=== PATIENT | male | born 2000 | race Caucasian/White ===

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

== ENCOUNTER 2019-10-17 00:35 | Emergency (ER) | payer MEDICAID ==
[~2019-10-17] VITALS: Ht 180.3 cm; Wt 65.8 kg
--- NOTE | 2019-10-17 00:35 | NUR ---
ROSITA CHENG, PREBOOK. TAKEN TO CHAIR A
[2019-10-17 00:41] VITALS: BP 134/94
--- NOTE | 2019-10-17 00:48 | NUR ---
Dr. Perla examining patient.
[2019-10-17] MEDS ORDERED: KETOROLAC 60 MG/2 ML VIAL IM ONE ×2 (00:50)
--- NOTE | 2019-10-17 00:57 | NUR ---
PATIENT BIB [employer]. PATIENT EXAMINED BY . PATIENT MEDICALLY CLEARED AND RELEASED IN CUSTODY IN STABLE CONDITION. ORIGINAL PRE-BOOK FORM GIVEN TO OFFICER HONG, #[id number]
== END 2019-10-17 00:57 ==
LOC: MED 00:35
DX: M25.531 Pain in right wrist (principal); M25.532 Pain in left wrist; F12.90 Cannabis use, unspecified, uncomplicated; Z02.89 Encounter for other administrative examinations
CPT/HCPCS: 96372; 99283; J1885

== ENCOUNTER 2019-10-18 03:02 | Emergency (ER) | payer MEDICAID, SELFPAY ==
[~2019-10-18] VITALS: Ht 180.3 cm; Wt 55.8 kg
[2019-10-18 03:18] VITALS: BP 123/80
--- NOTE | 2019-10-18 03:45 | NUR ---
RITIKA BIRMINGHAM IN TENT TO REDD PT
--- NOTE | 2019-10-18 03:50 | NUR ---
RITIKA BIRMINGHAM ASSESSED AND EVALUATED PT.
--- NOTE | 2019-10-18 04:00 | NUR ---
COLLECTED COVID SWAB AND SENT TO LAB.
[2019-10-18 04:10] VITALS: BP 123/80
--- NOTE | 2019-10-18 04:10 | NUR ---
Patient discharged with v/s stable. Written and verbal after care instructions given and explained. Patient alert, oriented and verbalized understanding of instructions. Ambulatory with steady gait. All questions addressed prior to discharge. ID band removed. Patient advised to follow up with PMD. Rx of PREDNISONE, MOTRIN, ZOFRAN, NORCO given. Patient educated on indication of medication including possible reaction and side effects. Opportunity to ask questions provided and answered.
== END 2019-10-18 04:10 | disposition home or self-care (01) ==
LOC: MED 03:02
DX: J02.9 Acute pharyngitis, unspecified (principal); R50.9 Fever, unspecified; R11.2 Nausea with vomiting, unspecified; M79.10 Myalgia, unspecified site; Z20.828 Contact with and (suspected) exposure to other viral communicable diseases
CPT/HCPCS: 99283; U0003

== ENCOUNTER 2019-10-19 04:14 | Emergency (ER) | payer MEDICAID ==
[~2019-10-19] VITALS: Ht 167.6 cm; Wt 65.8 kg
[2019-10-19 04:29] VITALS: BP 119/84
[2019-10-19] MEDS ORDERED: IBUPROFEN 600 MG TAB PO ONE (04:40)
[2019-10-19] MEDS ORDERED: ONDANSETRON 4 MG ODT PO ONE (04:40)
--- NOTE | 2019-10-19 04:40 | NUR ---
TRIAGED AND WAITING IN LAB.
--- NOTE | 2019-10-19 04:55 | NUR ---
19M PRESENTS TO ED WITH C/O SOB, SORE THROAT, VOMITING, HEADACHE X 1 WEEK. PT STATES THEY WOKE FEELING SHORT OF BREATH TONIGHT. PT DENIES BLURRY VISION. REPORTS A SUBJECTIVE COUGH. CBL SOUNDS. BOWEL SOUNDS NORMOACTIVE. ABDOMEN SOFT AND NONTENDER. HEART SOUNDS EQUAL AND REGULAR. ERMD MADE AWARE OF PT STATUS. PMHX: ANXIETY DEPRESSION NKA
--- NOTE | 2019-10-19 05:15 | NUR ---
Patient discharged with v/s stable. Written and verbal after care instructions given and explained. Patient alert, oriented and verbalized understanding of instructions. Ambulatory with steady gait. All questions addressed prior to discharge. ID band removed. Patient advised to follow up with PMD. Rx of NAPROXEN AND PREDNISONE given. Patient educated on indication of medication including possible reaction and side effects. Opportunity to ask questions provided and answered.
== END 2019-10-19 05:15 | disposition home or self-care (01) ==
LOC: MED 04:14
DX: J02.8 Acute pharyngitis due to other specified organisms (principal); Z20.828 Contact with and (suspected) exposure to other viral communicable diseases; B96.89 Other specified bacterial agents as the cause of diseases classified elsewhere; R11.2 Nausea with vomiting, unspecified; R51 Headache; F41.9 Anxiety disorder, unspecified
CPT/HCPCS: 71045; 99283; Q0162; 96361; 96365; 96375; 99285

== ENCOUNTER 2020-01-13 17:45 | Emergency (ER) | payer SELFPAY ==
[~2020-01-13] VITALS: Ht 180.3 cm; Wt 59.0 kg
[2020-01-13 17:58] VITALS: BP 112/75
--- NOTE | 2020-01-13 18:08 | NUR ---
RITIKA ORNELAS AT BEDSIDE EVALUATING
--- NOTE | 2020-01-13 18:10 | NUR ---
C/O INTERMITENT RLQ ABDOMINAL PAIN, NAUSEA, DIARRHEA X 2 WEEKS. ABD IS SOFT, FLAT, ACTIVE BS, AND TENDERNESS TO TOUCH ON LLQ. VSS. A&O X4. STEADY GAIT. +NAUSEA, +DIARRHEA, +CHANGE OF APPETTIE. LAST BM WAS 1500 TODAY. DENIES ANY BLOOD IN URINE OR STOOL. 9/10 PAIN AND DESCRIBES IT ACHING. MED HX: DENIES NKDA.
--- NOTE | 2020-01-13 18:14 | NUR ---
PT TRANSFER TO CT VIA W/C.
--- NOTE | 2020-01-13 18:25 | NUR ---
PT RETURNED BACK FROM CT.
--- NOTE | 2020-01-13 18:25 | NUR ---
LAB AT BEDSIDE.
[2020-01-13 18:38] LABS: BASOPHILS # (AUTO) 0.1 K/uL (0.00-0.22); BASOPHILS % (AUTO) 1.1 % (0.0-2.0); EOSINOPHILS # (AUTO) 0.1 K/uL (0-0.4); EOSINOPHILS % (AUTO) 1.1 % (0.0-4.0); HEMOGLOBIN 16.9 g/dL (12.0-18.0); LYMPHOCYTES % (AUTO) 32.8 % (20.5-51.1); MEAN CORPUSCULAR HEMOGLOBIN 30 pg (27-31); MEAN CORPUSCULAR HGB CONC 35 g/dL (33-37); MEAN CORPUSCULAR VOLUME 87.8 fL (80-94); MONOCYTES # (AUTO) 0.6 K/uL (0.8-1.0); MONOCYTES % (AUTO) 10.4 % (1.7-9.3); NEUTROPHILS # (AUTO) 3.3 K/uL (1.8-7.7); NEUTROPHILS % (AUTO) 54.6 % (42.2-75.2); PLATELET COUNT (AUTO) 234 K/uL (140-450); RED BLOOD CELL COUNT(AUTO) 5.58 MIL/uL (4.20-6.10); WHITE BLOOD COUNT (AUTO) 6.1 K/uL (4.5-11.0)
[2020-01-13 19:08] LABS: ANION GAP 12.6 (8-16); CARBON DIOXIDE 30.3 mmol/L (21-32); CREATININE 0.9 mg/dL (0.6-1.3); POTASSIUM 3.9 mmol/L (3.5-5.1)
[2020-01-13 19:22] LABS: ALBUMIN 4.8 g/dL (3.4-5.0); TOTAL BILIRUBIN 0.7 mg/dL (0.0-1.0)
--- NOTE | 2020-01-13 19:25 | NUR ---
Pt report given to DELORIS SILVESTRE. Transfer of care at this time.
--- NOTE | 2020-01-13 19:25 | NUR ---
REPORT RECIEVED FROM DELORIS JUÁREZ. TRANSFER OF CARE AT THIS TIME.
[2020-01-13] MEDS ORDERED: KETOROLAC 60 MG/2 ML VIAL IM ONE (19:30)
--- NOTE | 2020-01-13 19:40 | NUR ---
PT STATES HIS PAIN IS NOW 0/10 POST IM TORODOL. NADR
[2020-01-13 19:41] VITALS: BP 118/80
--- NOTE | 2020-01-13 19:41 | NUR ---
Patient discharged with v/s stable. Written and verbal after care instructions given and explained. Patient alert, oriented and verbalized understanding of instructions. Ambulatory with steady gait. All questions addressed prior to discharge. ID band removed. Patient advised to follow up with PMD. Rx of MOTRIN, ZOFRAN given. Patient educated on indication of medication including possible reaction and side effects. Opportunity to ask questions provided and answered.
== END 2020-01-13 19:41 | disposition home or self-care (01) ==
LOC: MED 17:45
DX: R10.31 Right lower quadrant pain (principal); R11.0 Nausea; R19.7 Diarrhea, unspecified; F12.90 Cannabis use, unspecified, uncomplicated
CPT/HCPCS: 36415; 74176; 80053; 83690; 85025; 96372; 99284; J1885

== ENCOUNTER 2020-02-13 20:01 | Emergency (ER) | payer SELFPAY | END 2020-02-13 21:25 | disposition home or self-care (01) | LOC: MED 20:01 | DX: C44.90 Unspecified malignant neoplasm of skin, unspecified (principal) | CPT/HCPCS: 99281 ==

== ENCOUNTER 2020-03-13 18:27 | Emergency (ER) | payer SELFPAY ==
[~2020-03-13] VITALS: Ht 180.3 cm; Wt 57.2 kg
[2020-03-13 18:34] VITALS: BP 144/91
--- NOTE | 2020-03-13 18:58 | NUR ---
19/M BIB SELF C/O BURTON, LEFT CHEST PAIN X 2 DAYS.PMH: DENIES.
--- NOTE | 2020-03-13 19:00 | NUR ---
PT SEEN AND EVALUATED BY RITIKA FOREMAN. NO NURSING CARE RENDERED.
--- NOTE | 2020-03-13 19:28 | NUR ---
EMT ADMINISTERING EKG IN TRIAGE ROOM AT THIS TIME.
--- NOTE | 2020-03-13 19:57 | NUR ---
Patient discharged with v/s stable. Written and verbal after care instructions given and explained. Patient verbalized understanding. Ambulatory with steady gait. All questions addressed prior to discharge. Advised to follow up with PMD.
== END 2020-03-13 19:57 | disposition home or self-care (01) ==
LOC: MED 18:27
DX: R07.9 Chest pain, unspecified (principal)
CPT/HCPCS: 93005; 99283

== ENCOUNTER 2020-03-30 12:03 | Emergency (ER) | payer SELFPAY ==
[~2020-03-30] VITALS: Ht 180.3 cm; Wt 58.1 kg
[2020-03-30 12:10] VITALS: BP 123/97
--- NOTE | 2020-03-30 12:16 | NUR ---
19 y/o male c/o N/V X3days. Epigastric pain 10/10 pressure like. Denies PMH NKA
[2020-03-30] MEDS ORDERED: METOCLOPRAMIDE 10 MG/2 ML INJ VIAL IM ONE (12:25)
--- NOTE | 2020-03-30 13:00 | NUR ---
Pt ambulated to restroom for UA collection.
[2020-03-30 14:44] VITALS: BP 123/97
--- NOTE | 2020-03-30 14:45 | NUR ---
Patient discharged with v/s stable. Written and verbal after care instructions given and explained. Patient alert, oriented and verbalized understanding of instructions. Ambulatory with steady gait. All questions addressed prior to discharge. ID band removed. Patient advised to follow up with PMD. Rx of zofran 4mg TID PRN N/V given. Patient educated on indication of medication including possible reaction and side effects. Opportunity to ask questions provided and answered.
== END 2020-03-30 14:45 | disposition home or self-care (01) ==
LOC: MED 12:03
DX: R07.9 Chest pain, unspecified (principal); R06.02 Shortness of breath; R11.2 Nausea with vomiting, unspecified
CPT/HCPCS: 71045; 93005; 96372; 99283; J2765; 94664; 99285

== ENCOUNTER 2020-07-10 01:18 | Emergency (ER) | payer SELFPAY ==
[~2020-07-10] VITALS: Ht 170.2 cm; Wt 61.2 kg
--- NOTE | 2020-07-10 01:20 | NUR ---
CONNIE CHENG AT BEDSIDE WRITING HOLD. PATIENT TRANSFERED TO BED 5.
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
--- NOTE | 2020-07-10 01:20 | NUR ---
SEE RESTRAINTS FLOW SHEET FOR FURTHER DETAILS.
[2020-07-10 01:29] VITALS: BP 131/56
--- NOTE | 2020-07-10 01:35 | NUR ---
PT BECAME VERBALLY AGGRESSIVE TOWARDS STAFF, STATED THAT IF HIS PANTS WERE REMOVED HE WOULD "BITE EVERYONE THAT TOUCHES HIM"
[2020-07-10] MEDS ORDERED: DOXYCYCLINE 100 MG CAP PO STA (01:49)
[2020-07-10] MEDS ORDERED: cefTRIAXone 250 MG in LIDOCAINE MPF 1% 0.9 ML IM ONE (01:50)
[2020-07-10 01:59] LABS: BASOPHILS # (AUTO) 0.1 K/uL (0.00-0.22); BASOPHILS % (AUTO) 0.7 % (0.0-2.0); EOSINOPHILS # (AUTO) 0.1 K/uL (0-0.4); HEMATOCRIT 47.5 % (36-52); HEMOGLOBIN 16.5 g/dL (12.0-18.0); LYMPHOCYTES # (AUTO) 2.3 K/uL (2.0-11.5); LYMPHOCYTES % (AUTO) 30.3 % (20.5-51.1); MEAN CORPUSCULAR HEMOGLOBIN 31 pg (27-31); MEAN CORPUSCULAR HGB CONC 35 g/dL (33-37); MEAN CORPUSCULAR VOLUME 90.3 fL (80-94); MONOCYTES # (AUTO) 0.9 K/uL (0.8-1.0); NEUTROPHILS # (AUTO) 4.3 K/uL (1.8-7.7); PLATELET COUNT (AUTO) 287 K/uL (140-450); RED BLOOD CELL COUNT(AUTO) 5.26 MIL/uL (4.20-6.10); RED CELL DISTRIBUTION WIDTH 13.8 % (11.6-13.7); WHITE BLOOD COUNT (AUTO) 7.7 K/uL (4.5-11.0)
[2020-07-10] MEDS ORDERED: cefTRIAXone 250 MG VIAL ONE (02:01)
[2020-07-10] MEDS ORDERED: LIDOCAINE MPF 1% 5 ML ONE (02:01)
[2020-07-10 02:10] LABS: BARBITURATE, URINE NEGATIVE ng/ml (NEG <=200); BENZODIAZEPINE, URINE POSITIVE ng/mL (NEG <=200); CANNABINOID, URINE POSITIVE ng/mL (NEG <=50); COCAINE, URINE NEGATIVE ng/mL (NEG <=300); OPIATE, URINE NEGATIVE ng/mL (NEG <=2000); PHENCYCLIDINE SCREEN,URINE NEGATIVE ng/mL (NEG <=25)
--- NOTE | 2020-07-10 02:40 | NUR ---
PT CAME IN ON RESTRAINTS. PT ATTEMPING TO PULL OFF RESTRAINTS. STATING "I WANT TO LEAVE AND GO HOME." EDUCATED ON WHY PT IS PLACED ON HOLD, INFORMED PT WILL HAVE A TELEPYCH CONSULT. PT THREATENING STAFF, UNABLE TO REORIENT AT THIS TIME. MADE AWARE. NO NEW ORDERS AT THIS TIME.
[2020-07-10 02:44] LABS: ALBUMIN 4.4 g/dL (3.4-5.0); ASPARTATE AMINOTRANSFERASE 19 U/L (15-37); CHLORIDE 102 mmol/L (98-107); GFR ARICAN-AMERICAN 123 mL/min (>90); GLUCOSE 92 mg/dL (74-106); POTASSIUM 3.3 mmol/L (3.5-5.1); SODIUM SERUM 139 mmol/L (136-145); TOTAL BILIRUBIN 1.5 mg/dL (0.0-1.0); UREA NITROGEN, BLOOD 13 mg/dL (7-18)
[2020-07-10 02:57] LABS: ACETAMINOPHEN < 0.5 ug/ml (10-30); SALICYLATE < 2.8 mg/dL (2.8-20.0)
[2020-07-10 03:02] LABS: ANION GAP 14.9 (8-16); CARBON DIOXIDE 25.4 mmol/L (21-32)
--- NOTE | 2020-07-10 03:04 | NUR ---
PER TELEPSYCH REQUEST INITIATED; CONNECT ID [id number]
--- NOTE | 2020-07-10 04:27 | NUR ---
PATIENT SPEAKING TO TELEPSYCH.
[2020-07-10] MEDS ORDERED: ZIPRASIDONE MESYLATE 20 MG/ML VIAL IM ONE (05:40)
[2020-07-10] MEDS ORDERED: LORazepam 2 MG/ML VIAL ONE (06:20)
--- NOTE | 2020-07-10 06:20 | NUR ---
PT IS TRYING TO TAKE OFF HIS WRIST RESTRAIN, TRYING TO GET OOB AND SAID THAT HE WANTS TO GO HOME, SECURITY AT BEDSIDE, NURSE AND EMT AT BEDSIDE.
[2020-07-10] MEDS ORDERED: LORazepam 2 MG/ML VIAL IM ONE (06:25)
--- NOTE | 2020-07-10 06:25 | NUR ---
PT IS SCREAMING, AGITATED, TRYING GET OOB, ATIVAN 2MG IM GIVEN BY DELORIS JUAN ORDERED BY RITIKA.
--- NOTE | 2020-07-10 07:13 | NUR ---
PT STABLE, NO DISTRESS, CONTINUE ON 1:1 SITTER, ENDORSED TO AM SHIFT RN FOR CONTINUITY OF CARE.
--- NOTE | 2020-07-10 07:16 | NUR ---
PT ASLEEP IN BED, RR EVEN AND UNLABORED, BED IN LOWEST POSITION. SITTER AT BEDSIDE.
--- NOTE | 2020-07-10 07:16 | NUR ---
TRANSFER OF CARE AT THIS TIME FROM DELORIS KAYE.
--- NOTE | 2020-07-10 08:25 | NUR ---
VS WNL, PT LYINING IN BED, BREAKFAST TRAY AT BEDSIDE.
--- NOTE | 2020-07-10 09:41 | NUR ---
RECEIVED A CALL FROM PTS SISTER, UPDATED HER ON PTS STATUS.
--- NOTE | 2020-07-10 11:46 | NUR ---
PT LYING IN BED, BED IN LOWEST POSITON, RR EVEN AND UNLABORED. SITTER AT BEDSIDE.
--- NOTE | 2020-07-10 12:06 | NUR ---
LUNCH TRAYS AT BED SIDE. PT CURRENTLY STILL SLEEPING
--- NOTE | 2020-07-10 12:10 | NUR ---
VS WNL, PT STILL ASLEEP IN BED, PT ENCOURAGED TO EAT, LUNCH TRAY AT BEDSIDE.
--- NOTE | 2020-07-10 13:43 | NUR ---
PTS SISTER NATALIIA IN WAITING AREA OF ED, GIVEN UPDATE ON PTS STATUS. NATALIIA # [phone] WILL CONTACT FOR ANY CHANGES ON PTS STATUS.
--- NOTE | 2020-07-10 15:31 | NUR ---
Dr. Boothe is evaluating the patient at bedside.
[2020-07-10 15:56] VITALS: BP 123/57
[2020-07-13] MEDS ORDERED: OLAN5TAB30 PO (12:10)
== END 2020-07-10 15:56 | disposition home or self-care (01) ==
LOC: MED 01:18
DX: R45.851 Suicidal ideations (principal); F12.10 Cannabis abuse, uncomplicated; F31.9 Bipolar disorder, unspecified; Z20.822 Contact with and (suspected) exposure to COVID-19; X83.8XXA Intentional self-harm by other specified means, initial encounter; Y93.89 Activity, other specified; Y92.89 Other specified places as the place of occurrence of the external cause; Y99.8 Other external cause status
CPT/HCPCS: 36415; 80053; 80305; 85025; 86703; 87426; 87491; 96372; 99285; G0480; G0482; J0696; J2001; J2060; J3486; U0003

== ENCOUNTER 2020-08-10 11:11 | Emergency (ER) | payer MEDICAID, SELFPAY ==
[~2020-08-10] VITALS: Ht 175.3 cm; Wt 63.5 kg
[~2020-08-10 11:11] MED LIST: OLAN5TAB30 PO
[2020-08-10 11:14] VITALS: BP 121/72
[2020-08-10] MEDS ORDERED: DOXYCYCLINE 100 MG CAP PO SCH (11:40)
[2020-08-10] MEDS ORDERED: cefTRIAXone 500 MG in LIDOCAINE MPF 1% 1 ML IM ONE (11:40)
[2020-08-10] MEDS ORDERED: PYR100 PO (11:42)
[2020-08-10] MEDS ORDERED: DOXY-487 PO (11:42)
[2020-08-10] MEDS ORDERED: cefTRIAXone 500 MG VIAL ONE (11:43)
[2020-08-10] MEDS ORDERED: LIDOCAINE MPF 1% 5 ML ONE (11:43)
== END 2020-08-10 12:15 | disposition home or self-care (01) ==
LOC: MED 11:11
DX: R30.0 Dysuria (principal); Z11.3 Encounter for screening for infections with a predominantly sexual mode of transmission
CPT/HCPCS: 36415; 81002; 86703; 87491; 96372; 99283; J0696; J2001

== ENCOUNTER 2020-08-14 18:26 | Inpatient (IN) | payer MEDICAID, SELFPAY ==
[~2020-08-14] VITALS: Ht 175.3 cm; Wt 58.5 kg
[~2020-08-14 18:26] MED LIST changes: +DOXY-487 PO; +PYR100 PO
[2020-08-14 18:28] VITALS: BP 147/81
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
[2020-08-14] MEDS ORDERED: KETOROLAC 30 MG/ML VIAL IVP ONE (18:55)
--- NOTE | 2020-08-14 19:15 | NUR ---
Pt report given to Maria Fernanda. Transfer of care at this time.
--- NOTE | 2020-08-14 19:18 | NUR ---
pt seizure precautions. AAOx3 - forgot year reported 2000. semi leonard's. VSS stable. no acute distress noted at this time
--- NOTE | 2020-08-14 19:19 | NUR ---
X-Ray at bedside.
--- NOTE | 2020-08-14 19:23 | NUR ---
Fang gurrola in [facility] - 08/14/20 at 1923 by DANNA PT TAKEN TO BED 9
--- NOTE | 2020-08-14 19:23 | NUR ---
PT TAKEN TO RADIOLOGY
--- NOTE | 2020-08-14 19:24 | NUR ---
urine collected and given to lab. given to cecily sim
[2020-08-14 19:25] LABS: BASOPHILS % (AUTO) 0.3 % (0.0-2.0); HEMATOCRIT 46.8 % (36-52); HEMOGLOBIN 16.1 g/dL (12.0-18.0); LYMPHOCYTES # (AUTO) 0.9 K/uL (2.0-11.5); LYMPHOCYTES % (AUTO) 7.1 % (20.5-51.1); MEAN CORPUSCULAR HEMOGLOBIN 31 pg (27-31); MEAN CORPUSCULAR HGB CONC 34 g/dL (33-37); MEAN CORPUSCULAR VOLUME 90.6 fL (80-94); MONOCYTES # (AUTO) 0.8 K/uL (0.8-1.0); MONOCYTES % (AUTO) 6.7 % (1.7-9.3); NEUTROPHILS # (AUTO) 10.4 K/uL (1.8-7.7); NEUTROPHILS % (AUTO) 85.9 % (42.2-75.2); PLATELET COUNT (AUTO) 297 K/uL (140-450); RED BLOOD CELL COUNT(AUTO) 5.17 MIL/uL (4.20-6.10); RED CELL DISTRIBUTION WIDTH 13.7 % (11.6-13.7); WHITE BLOOD COUNT (AUTO) 12.1 K/uL (4.8-10.8)
--- NOTE | 2020-08-14 19:34 | NUR ---
PT RETURN FROM RADIOLOGY
--- NOTE | 2020-08-14 19:39 | NUR ---
Dr. Perla examining patient.
[2020-08-14 19:40] LABS: ANION GAP 17.5 (8-16); CARBON DIOXIDE 26.1 mmol/L (21-32); CHLORIDE 102 mmol/L (98-107); CREATININE 0.8 mg/dL (0.6-1.3); GFR ARICAN-AMERICAN 157 mL/min (>90); GLUCOSE 93 mg/dL (74-106); POTASSIUM 3.6 mmol/L (3.5-5.1); SODIUM SERUM 142 mmol/L (136-145); UREA NITROGEN, BLOOD 5 mg/dL (7-18)
[2020-08-14 19:46] LABS: ALBUMIN 4.8 g/dL (3.4-5.0); ASPARTATE AMINOTRANSFERASE 31 U/L (15-37); TOTAL BILIRUBIN 1.2 mg/dL (0.0-1.0)
--- NOTE | 2020-08-14 19:50 | NUR ---
nga collected and sent to lab. received by cecily Cervantes
[2020-08-14 19:53] LABS: ACETAMINOPHEN < 0.5 ug/ml (10-30); SALICYLATE < 2.8 mg/dL (2.8-20.0)
[2020-08-14 19:53] LABS: APPEARANCE,URINE CLEAR (CLEAR); BILIRUBIN,URINE NEGATIVE (NEGATIVE); BLOOD, URINE 1+ (NEGATIVE); COLOR,URINE YELLOW (YELLOW); LEUKOCYTE ESTERASE ,URINE NEGATIVE (NEGATIVE); NITRITE, URINE NEGATIVE (NEGATIVE); UGLUCOSE NEGATIVE (NEGATIVE)
[2020-08-14 20:16] LABS: BARBITURATE, URINE NEGATIVE ng/ml (NEG <=200); BENZODIAZEPINE, URINE NEGATIVE ng/mL (NEG <=200); CANNABINOID, URINE POSITIVE ng/mL (NEG <=50); COCAINE, URINE NEGATIVE ng/mL (NEG <=300); OPIATE, URINE NEGATIVE ng/mL (NEG <=2000); PHENCYCLIDINE SCREEN,URINE NEGATIVE ng/mL (NEG <=25)
[2020-08-14] MEDS ORDERED: NACL 0.9% 1,000 ML IV ONE (20:20)
[2020-08-14 20:21] LABS: RBC,URINE 0-5 /HPF (0-5); WBC,URINE 0-5 /HPF (0-5)
--- NOTE | 2020-08-14 21:10 | NUR ---
Patient will be admitted to care of Pilar GARAY. Admited to telemetry. Will go to room 107a. Belongings list completed. Report to Helen PUENTES.
[2020-08-14 21:15] VITALS: BP 129/80
[2020-08-14] MEDS ORDERED: ACETAMINOPHEN 325 MG TAB PO PRN (21:30)
[2020-08-14] MEDS ORDERED: DOCUSATE SODIUM 100 MG GELCAP PO PRN (21:30)
[2020-08-14] MEDS ORDERED: POTASSIUM CHLORIDE 10 MEQ TABER PO PRN (21:30)
[2020-08-14] MEDS ORDERED: ZOLPIDEM 5 MG TAB PO PRN (21:30)
[2020-08-14] MEDS ORDERED: ONDANSETRON 4 MG/2 ML VIAL IM/IVP PRN (21:30)
[2020-08-14] MEDS ORDERED: guaiFENesin DM 200/20 MG-10 ML 10 ML UDC PO PRN (21:30)
[2020-08-14] MEDS ORDERED: HYDROcodone/APAP 7.5/325 MG 1 TAB PO PRN (21:30)
--- NOTE | 2020-08-14 21:30 | NUR ---
[facility], HE IS AOX 2-3 . PT ON ROOM AIR RESPIRATIONS EVEN AND UNLABORED AND ABLE TO AMBULATE INDEPENDENTLY FROM [facility] TO BED. PT HAS SKIN INTACT EXCEPT FOR A MODERATELY SIZED LACERATION THAT IS DRY AND OPEN WELL A SMALLER SCRATCH ON HIS LEFT HAND. PT HAS A RIGHT AC 20G INTACT AND FLUSHED PATENT. ALL SEIZURE AND UNIVERSAL PRECAUTIONS IN PLACE.
[2020-08-14] MEDS ORDERED: LORazepam 2 MG/ML VIAL IVP PRN (21:35)
[2020-08-14 22:00] LABS: PROTHROMBIN TIME 9.9 secs (10.8-13.4)
[2020-08-14 22:03] LABS: CHOL/HDL RATIO 2.6 (1-4.5); FREE T4 (FREE THYROXINE) 1.36 ng/dL (0.76-1.46); MAGNESIUM 2.3 mg/dL (1.8-2.4); PHOSPHORUS 1.4 mg/dL (2.5-4.9); THYROID STIMULATING HORMONE 0.8 uIU/mL (0.34-3.74)
--- NOTE | 2020-08-14 22:30 | NUR ---
PT IN BED AOX 2-3. PT IS AWARE OF NAME AND PLACE BUT DOESN'T REMEMBER THE DATE AND MONTH. PT ABLE TO ANSWER THE ADMISSION QUESTIONS WITHOUT A PROBLEM . MRSA SWAB DONE; IV SITE ON RAC FLUSHED PATENT. AND NORMAL BAG OF SALINE HUNG AND IS RUNNING ORDERED AT 60MLS/HR. PT GIVEN REQUESTED SANDWICH AND A FEW JUICES. ALL ORDERED PRECAUTIONS IN PLACE.
--- NOTE | 2020-08-14 23:30 | NUR ---
ORDERED EKG DONE AT BEDSIDE BY RT. PT C/O THAT HE HAD VOMITED X1, HE WAS GIVEN 4MG/2MLS OF ZOFRAN IVP AND WILL MONITOR FOR RESULTS. WARM BLANKET AND WATER PROVIDED REQUESTED.
--- NOTE | 2020-08-15 00:30 | NUR ---
PT IN BED SLEEPING V/S FOLLOWS: T 97.2 P 78 R 17 B/P 130/84 02 100% ON ROOM AIR. PT IS NSR ON TELE ALL ORDERED PRECAUTIONS IN PLACE.
[2020-08-15 04:00] VITALS: BP 125/70
--- NOTE | 2020-08-15 04:00 | NUR ---
PT IN BED RESTING WITH EYES CLOSED BUT AROUSABLE TO NAME AND LIGHT TOUCH. PT HAS RAC INTACT AND RUNNING NORMAL SALINE AT 60MLS/HR. NO SEIZURE ACTIVITY NOTED THIS SHIFT, NO S/S OF PAIN OR DISTRESS NOTED. V/S FOLLOWS: T 98.8 P 70 R 18 B/P 125/70 02 100% ON ROOM AIR. ALL ORDERED PRECAUTIONS IN PLACE.
[2020-08-15 06:58] LABS: BASOPHILS % (AUTO) 0.5 % (0.0-2.0); EOSINOPHILS % (AUTO) 0.2 % (0.0-4.0); HEMATOCRIT 41.1 % (36-52); HEMOGLOBIN 14.2 g/dL (12.0-18.0); LYMPHOCYTES # (AUTO) 1.6 K/uL (2.0-11.5); MEAN CORPUSCULAR HEMOGLOBIN 31 pg (27-31); MEAN CORPUSCULAR HGB CONC 35 g/dL (33-37); MONOCYTES # (AUTO) 1.3 K/uL (0.8-1.0); MONOCYTES % (AUTO) 12.5 % (1.7-9.3); NEUTROPHILS # (AUTO) 7.2 K/uL (1.8-7.7); NEUTROPHILS % (AUTO) 70.8 % (42.2-75.2); PLATELET COUNT (AUTO) 249 K/uL (140-450); RED BLOOD CELL COUNT(AUTO) 4.57 MIL/uL (4.20-6.10); RED CELL DISTRIBUTION WIDTH 13.8 % (11.6-13.7); WHITE BLOOD COUNT (AUTO) 10.1 K/uL (4.8-10.8)
--- NOTE | 2020-08-15 07:10 | NUR ---
PT RECEIVED FROM PARK MANAGER RN. PT RESTING IN BED NO S/S OF DISTRESS AT THIS TIME . PT ABLE TO MAKE NEEDS KNOWN.
[2020-08-15 07:28] LABS: ANION GAP 13.3 (8-16); POTASSIUM 3.3 mmol/L (3.5-5.1)
[2020-08-15 08:00] VITALS: BP 125/83
--- NOTE | 2020-08-15 08:30 | NUR ---
PT PULLED OUT IV. GAUZE GIVEN APPLIED PRESSURE. CANULA WAS INTACT. NO S/S OF DISTRESS Addendum: 08/15/20 at 1631 by Suyapa Leblanc RN RN NEW IV STARTED . PT TOLERATED WELL.
--- NOTE | 2020-08-15 08:53 | NUR ---
PATIENT HAS BEEN SCREENED AND CATEGORIZED HIGH NUTRITION RISK. PATIENT WILL BE SEEN WITHIN 1-2 DAYS OF ADMISSION. 08/15/20-08/16/[address]
[2020-08-15] MEDS: PANTOPRAZOLE 40 MG TABEC PO SCH (08:55)
[2020-08-15] MEDS: levETIRAcetam 500 MG TAB PO SCH ×2 (08:56→20:32)
[2020-08-15] MEDS: OLANZapine 5 MG TAB PO SCH ×2 (08:56→20:31)
--- NOTE | 2020-08-15 08:57 | NUR ---
MEDICATIONS GIVEN PER MD ORDER. PT EDUCATED AND VERBALIZED UNDERSTANDING. PT TOLERATED. NO S/S OF DISTRESS AT THIS TIME. CALL LIGHT WITHIN REACH. ALL SAFETY MEASURES ARE IN PLACE.
--- NOTE | 2020-08-15 11:10 | NUR ---
FAMILY BROUGHT BELONGINGS TO PT. PT RECEIVED BELONGINGS. PT RESTING IN BED EYES CLOSED EASY TO AROUSE.
--- NOTE | 2020-08-15 11:30 | NUR ---
PT RESTING IN BED. PTS MOM AND SISTER ARE DOING WINDOW VISITATION.
[2020-08-15 12:00] VITALS: BP 126/64
--- NOTE | 2020-08-15 12:03 | NUR ---
08/15/20 RD INITIAL ASSESSMENT COMPLETED PLEASE REFER TO NUTRITION ASSESSMENT UNDER CARE ACTIVITY FOR ESTIMATED NUTRITIONAL NEEDS. 1. CONTINUE REGULAR DIET TOLERATED 2. RD TO FOLLOW-UP 3-5 DAYS, MODERATE RISK EAMON [address]
--- NOTE | 2020-08-15 12:08 | NUR ---
DC PLANNIN YRS OLD MALE PATIENT WAS ADMITTED FROM HOME WITH A DX OF NEW ONSET OF SEIZURE. PT HAS NO MEDICAL HISTORY. CXR SHOWED NO ACUTE CARDIOPULMONARY DISEASE. CT HEAD NEGATIVE. RAPID COVID TEST NEGATIVE. ADMINISTERED IVF, KEPPRA FOR SEIZURE, TORADOL 30 MG IV IMPROVEMENT WITH PAIN. ORDERED EEG, CONSULTED WITH NEUROLOGIST. DC PLAN TO GO HOME WHEN STABLE CM TO FOLLOW
--- NOTE | 2020-08-15 13:00 | NUR ---
PT RESTING IN BED. PT CLAIMED HE DID NOT LIKE FOOD. PER FNS CONSULTATION PT HAS BEEN LOOSING WEIGHT. PT PROVIDED A HAM AND CHEESE SANDWICH PER REQUEST.
--- NOTE | 2020-08-15 14:04 | NUR ---
PT AMBULATING TO RESTROOM. PT TOLERATED WELL. BATH WIPES WERE GIVEN . PT ABLE TO PERFORM INDEPENDENTLY. NO S/S OF DISTRESS AT THIS TIME
[2020-08-15] MEDS: SODIUM PHOS / POTASSIUM PHOS 1 PKT PDR PO SCH ×2 (14:27→17:20)
--- NOTE | 2020-08-15 15:37 | NUR ---
PT ATE HALF OF MEAL AND 2 JUICES. PT OFFERED SNACK PT REFUSED. PT EDUCTAE DON NUTRITION REINFORCEMENT NEEDED.
[2020-08-15 16:00] VITALS: BP 108/82
--- NOTE | 2020-08-15 18:15 | NUR ---
PT SITTING AT EDGE OF BED EATING.
--- NOTE | 2020-08-15 19:08 | NUR ---
REPORT GIVEN TO CHAPLAIN RESIDENT RNS FOR CONTINUITY OF CARE
--- NOTE | 2020-08-15 19:15 | NUR ---
RECEIVED BEDSIDE REPORT FROM DAY SHIFT NURSE FOR CONTINUITY OF CARE. PT IS AWAKE AND SPEAKING APPROPRIATELY. NO SIGNS OF DISTRESS. ON RA WITH BREATHING UNLABORED. SR ON TELE MONITORING. AMBULATORY INDEPENDENTLY. SKIN IS WARM, DRY, AND INTACT. IV IS IN THE RIGHT FOREARM 20 GAUGE RUNNING NS AT 60 ML PER HOUR PER ORDER. PT IS STABLE. UNIVERSAL, STANDARD, AND SEIZURE PRECAUTIONS IN PLACE.
[2020-08-15 20:00] VITALS: BP 106/44
--- NOTE | 2020-08-15 20:36 | NUR ---
PRN POTASSIUM CHLORIDE GIVEN PER DOCTOR ORDER, K+ 3.3. EDUCATION PROVIDED, PATIENT VERBALIZED UNDERSTANDING. SAFETY MEASURES IN PLACE, CALL LIGHT WITHIN REACH. WILL CONTINUE TO MONITOR.
--- NOTE | 2020-08-15 21:30 | NUR ---
MADE ROUNDS ON PT. HE IS AWAKE AND WATCHING TV IN BED. A&OX3. PT WAS EDUCATED ON IMPORTANCE OF MARIJUANA CESSATION RELATED TO DIAGNOSIS OF SEIZURES. PT VERBALIZED UNDERSTANDING. QUESTIONS ANSWERED. PT IS STABLE AT THIS TIME.
--- NOTE | 2020-08-15 22:45 | NUR ---
EXCHANGE FLOOR MANAGER AT BEDSIDE DRAWING BLOOD FOR TROPONIN TEST. Addendum: 08/15/20 at 2316 by Reshma Jones RN THIS NOTE WAS FOR A DIFFERENT PT.
--- NOTE | 2020-08-15 23:16 | NUR ---
PT IS SLEEPING IN SEMI FOWLERS POSITION. NO RESPIRATORY DISTRESS NOTED. BREATHING IS UNLABORED ON RA. NO SEIZURE ACTIVITY NOTED. PT IS STABLE. WILL CONTINUE TO MONITOR.
[2020-08-16] VITALS: BP 103/56
--- NOTE | 2020-08-16 01:30 | NUR ---
PT IS SLEEPING. PT IS STABLE. BREATHING UNLABORED ON RA. IV FLUIDS ARE INFUSING ORDERED. SEIZURE PRECAUTIONS IN PLACE. BED IN LOWEST POSITION AND CALL LIGHT WITHIN REACH.
--- NOTE | 2020-08-16 03:20 | NUR ---
PT'S AWAKE AND MOVING AROUND IN BED. PT STATES HE IS OKAY AT THIS TIME. NO DISTRESS NOTED. IV IS PATENT AND INTACT. WILL CONTINUE TO MONITOR.
[2020-08-16 04:00] VITALS: BP 118/64
[2020-08-16 05:20] LABS: BASOPHILS # (AUTO) 0.1 K/uL (0.00-0.22); BASOPHILS % (AUTO) 1.9 % (0.0-2.0); EOSINOPHILS # (AUTO) 0.1 K/uL (0-0.4); EOSINOPHILS % (AUTO) 1.4 % (0.0-4.0); HEMATOCRIT 40.8 % (36-52); HEMOGLOBIN 13.8 g/dL (12.0-18.0); LYMPHOCYTES % (AUTO) 35.2 % (20.5-51.1); MEAN CORPUSCULAR HEMOGLOBIN 31 pg (27-31); MEAN CORPUSCULAR HGB CONC 34 g/dL (33-37); MEAN CORPUSCULAR VOLUME 91.6 fL (80-94); MONOCYTES # (AUTO) 0.7 K/uL (0.8-1.0); MONOCYTES % (AUTO) 12.7 % (1.7-9.3); NEUTROPHILS # (AUTO) 2.7 K/uL (1.8-7.7); NEUTROPHILS % (AUTO) 48.8 % (42.2-75.2); PLATELET COUNT (AUTO) 261 K/uL (140-450); RED BLOOD CELL COUNT(AUTO) 4.45 MIL/uL (4.20-6.10); WHITE BLOOD COUNT (AUTO) 5.6 K/uL (4.8-10.8)
--- NOTE | 2020-08-16 05:30 | NUR ---
PT IS AWAKE AND ALERT. A&OX3. ON RA WITH BREATHING UNLABORED. IV IS INFUSING NS AT 60 ML PER HOUR PER ORDER. NO DISTRESS AT THIS TIME. NO SEIZURE ACTIVITY NOTED. PT IS STABLE.
[2020-08-16 05:46] LABS: ANION GAP 12.1 (8-16); CARBON DIOXIDE 25.5 mmol/L (21-32); POTASSIUM 3.6 mmol/L (3.5-5.1)
--- NOTE | 2020-08-16 07:25 | NUR ---
PATIENT ENDORSED TO DAY SHIFT, MOOK, FOR CONTINUITY OF CARE, POC DISCUSSED. PATIENT IN STABLE CONDITION
--- NOTE | 2020-08-16 07:28 | NUR ---
RECEIVED REPORT FROM NIGHT NURSE PT IS AAOX4 ON ROOM AIR, AMBULATORY, SKIN INTACT, LAST BOWEL MOVEMENT ON 08/16/20, IV INTACT ON RIGHT FA WITH SODIUM CHLORIDE 0.9% AT 60 MLS/HR. PT POSITIVE FOR CANNABINOIDS, EEG TEST RESULTED NORMAL AND NO SEIZURE OCCURRENCE. SAFETY MEASURES IN PLACE AND CALL LIGHT WITHIN REACH. WILL CONTINUE TO MONITOR.
[2020-08-16 08:00] VITALS: BP 114/70
[2020-08-16] MEDS: levETIRAcetam 500 MG TAB PO SCH (09:02)
[2020-08-16] MEDS: OLANZapine 5 MG TAB PO SCH (09:02)
[2020-08-16] MEDS: PANTOPRAZOLE 40 MG TABEC PO SCH (09:03)
[2020-08-16] MEDS: SODIUM PHOS / POTASSIUM PHOS 1 PKT PDR PO SCH ×3 (09:03→17:03)
--- NOTE | 2020-08-16 09:03 | NUR ---
MEDICATION DUE GIVEN CHECK VITAL SIGNS BP 114/70 IL 60 PT FEELS OK AND DISTRESS NOTED.WILL CONTINUE TO MONITOR.
--- NOTE | 2020-08-16 10:30 | NUR ---
MADE ROUNDS PT SLEEPING ANF FEELS OK NO DISTRESS NOTED.
[2020-08-16 12:00] VITALS: BP 105/63
[2020-08-16] MEDS ORDERED: KEP500 PO (12:53)
--- NOTE | 2020-08-16 12:58 | NUR ---
MEDICATION DUE GIVEN AND PT TOLERATED WELL.
--- NOTE | 2020-08-16 15:15 | NUR ---
MEDICATION DUE GIVEN AND INFUSING WELL.
[2020-08-16] MEDS ORDERED: POTASSIUM PHOSPHATE 15 MM in NACL 0.9% 250 ML IV SCH (15:30)
[2020-08-16 16:00] VITALS: BP 111/61
--- NOTE | 2020-08-16 17:08 | NUR ---
MEDICATION DUE GIVEN AND NO DISTRESS NOTED.
--- NOTE | 2020-08-16 17:25 | NUR ---
DISCHARGE INSTRUCTION GIVEN TO THE PATIENT AT BEDSIDE AND INSTRUCTED TO FOLLOW UP WITH PCP IN 5 DAYS AND OUTPATIENT WITH NEUROLOGIST. ENCOURAGE TO CONTINUE MEDICATIONS AND INSTRUCTED TO LIMIT FATTY FOODS AND EAT HEALTHY. REMOVED ID BAND, IV COMPLETE AND NO BLEEDING, REMOVED GRATED CHEESE MAKER AND RETURNED TO FITTER/WELDER, CHANGED PT OWN CLOTHES AND PT TOOK ALL HIS BELONGINGS, ESCORTED TO FRONT LOBBY VIA WHEELCHAIR PT IS DISCHARGED TO HOME ACCOMPANIED BY FAMILY. PT IS STABLE.
[2020-08-18 06:06] LABS: T4 (THYROXINE) 6.9 ug/dL (4.5-12.0)
== END 2020-08-16 17:20 | disposition home or self-care (01) | DRG 53 ==
LOC: MED 18:26 → MTU 20:01
PROVIDERS: ADMIT Family Medicine; ATTEND Family Medicine
PROC: 4A00X4Z Measurement of Central Nervous Electrical Activity, External Approach (ICD-10-PCS; principal; 2020-08-15)
DX: R56.9 Unspecified convulsions (principal); G92 Toxic encephalopathy; S09.90XA Unspecified injury of head, initial encounter; E83.39 Other disorders of phosphorus metabolism; F12.929 Cannabis use, unspecified with intoxication, unspecified; D72.829 Elevated white blood cell count, unspecified; E86.0 Dehydration; E87.6 Hypokalemia; Z20.822 Contact with and (suspected) exposure to COVID-19; X58.XXXA Exposure to other specified factors, initial encounter; Z87.891 Personal history of nicotine dependence; Z79.899 Other long term (current) drug therapy; Y92.89 Other specified places as the place of occurrence of the external cause; Y93.89 Activity, other specified; Y99.8 Other external cause status
CPT/HCPCS: 36415; 70450; 71045; 80048; 80053; 80305; 81001; 82150; 83036; 83690; 83735; 83880; 84100; 84436; 84439; 84443; 84479; 84484; 85025; 85610; 85730; 87081; 96374; 99285; G0480; G0482; J1885; J2405; J7030

== ENCOUNTER 2020-09-11 19:24 | Emergency (ER) | payer MEDICAID, SELFPAY ==
[~2020-09-11] VITALS: Ht 175.3 cm; Wt 59.0 kg
[~2020-09-11 19:24] MED LIST changes: -DOXY-487 PO; +KEP500 PO; -PYR100 PO
[2020-09-11 19:38] VITALS: BP 136/90
--- NOTE | 2020-09-11 19:38 | NUR ---
TO BED AMBULATORY
--- NOTE | 2020-09-11 19:55 | NUR ---
ERMD AT BEDSIDE FOR MEDICAL EVALUATION.
--- NOTE | 2020-09-11 19:56 | NUR ---
PT ASSESSMENT COMPLETED BY RITIKA , NO NURSING INTERVENTIONS NEEDED AT THIS TIME.
[2020-09-11] MEDS ORDERED: IBUP-2213 PO (20:07)
[2020-09-11] MEDS ORDERED: ACET-8386 PO (20:07)
[2020-09-11 20:13] VITALS: BP 136/90
--- NOTE | 2020-09-11 20:13 | NUR ---
Patient discharged with v/s stable. Written and verbal after care instructions given and explained. Patient alert, oriented and verbalized understanding of instructions. Ambulatory with steady gait. All questions addressed prior to discharge. ID band removed. Patient advised to follow up with PMD. Rx of NORCO & IBUPROFEN given. Patient educated on indication of medication including possible reaction and side effects. Opportunity to ask questions provided and answered.
== END 2020-09-11 20:13 | disposition home or self-care (01) ==
LOC: MED 19:24
DX: S00.531A Contusion of lip, initial encounter (principal); R68.84 Jaw pain; F12.90 Cannabis use, unspecified, uncomplicated; Z79.899 Other long term (current) drug therapy; V89.2XXA Person injured in unspecified motor-vehicle accident, traffic, initial encounter; Y93.89 Activity, other specified; Y92.89 Other specified places as the place of occurrence of the external cause; Y99.8 Other external cause status
CPT/HCPCS: 99283

== ENCOUNTER 2021-03-29 04:43 | Emergency (ER) | payer MEDICAID, OTHER ==
[~2021-03-29] VITALS: Ht 175.3 cm; Wt 61.2 kg
[~2021-03-29 04:43] MED LIST changes: +ACET-8386 PO; +IBUP-2213 PO; -OLAN5TAB30 PO; +OLAN5TAB65 PO
[2021-03-29 05:27] VITALS: BP 120/72
--- NOTE | 2021-03-29 05:29 | NUR ---
TO LOBBY A/W BED AMBULATORY
[2021-03-29] MEDS ORDERED: ONDANSETRON 4 MG ODT PO ONE (06:55)
[2021-03-29] MEDS ORDERED: IBUPROFEN 400 MG TAB PO ONE (06:55)
[2021-03-29] MEDS ORDERED: ACETAMINOPHEN 325 MG TAB PO ONE ×2 (06:55)
--- NOTE | 2021-03-29 07:00 | NUR ---
SWAB FOR JAY SENT TO LAB
[2021-03-29 08:59] LABS: EOSINOPHILS % (AUTO) 0.6 % (0.0-4.0); HEMATOCRIT 46.1 % (36-52); LYMPHOCYTES # (AUTO) 0.9 K/uL (2.0-11.5); LYMPHOCYTES % (AUTO) 21.2 % (20.5-51.1); MEAN CORPUSCULAR HEMOGLOBIN 32 pg (27-31); MEAN CORPUSCULAR HGB CONC 35 g/dL (33-37); MONOCYTES % (AUTO) 22.1 % (1.7-9.3); NEUTROPHILS # (AUTO) 2.5 K/uL (1.8-7.7); NEUTROPHILS % (AUTO) 55.1 % (42.2-75.2); PLATELET COUNT (AUTO) 232 K/uL (140-450); RED BLOOD CELL COUNT(AUTO) 5.06 MIL/uL (4.20-6.10); RED CELL DISTRIBUTION WIDTH 13.9 % (11.6-13.7); WHITE BLOOD COUNT (AUTO) 4.5 K/uL (4.8-10.8)
[2021-03-29 09:40] LABS: ANION GAP 15.6 (8-16); CARBON DIOXIDE 25.1 mmol/L (21-32); CREATININE 0.8 mg/dL (0.6-1.3); POTASSIUM 3.7 mmol/L (3.5-5.1)
[2021-03-29 09:42] LABS: ALBUMIN 4.6 g/dL (3.4-5.0); BILIRUBIN,DIRECT 0.2 mg/dL (0.0-0.3); TOTAL BILIRUBIN 0.6 mg/dL (0.0-1.0)
--- NOTE | 2021-03-29 10:45 | NUR ---
20/M BIB SELF WITH C/O N/V AND HEADACHE X3 WEEKS. STATES HE HAS BEEN HAVING 2-3 EPISODES OF VOMITING DAILY. REPORTS TAKING IBUPROFEN FOR HEADACHE WITH RELIEF. DENIES CP, SOB OR FEVERS, DENIES RECENT SICK CONTACTS.
[2021-03-29 11:00] VITALS: BP 159/88
--- NOTE | 2021-03-29 11:08 | NUR ---
Patient discharged with v/s stable. Written and verbal after care instructions ABOUT COVID 19 given and explained. Patient verbalized understanding. Ambulatory with steady gait. All questions addressed prior to discharge. Advised to follow up with PMD.
== END 2021-03-29 11:08 | disposition home or self-care (01) ==
LOC: MED 04:43
DX: U07.1 COVID-19 (principal); R11.2 Nausea with vomiting, unspecified; F12.90 Cannabis use, unspecified, uncomplicated; Z79.899 Other long term (current) drug therapy
CPT/HCPCS: 36415; 80048; 80076; 83690; 85025; 87426; 99284; Q0162

== ENCOUNTER 2022-07-14 16:05 | Emergency (ER) | payer OTHER ==
[~2022-07-14] VITALS: Ht 180.3 cm; Wt 63.5 kg
[~2022-07-14 16:05] MED LIST changes: -ACET-8386 PO; +ACET-8905 PO
[2022-07-14 16:12] VITALS: BP 140/107
[2022-07-14] MEDS ORDERED: DIPHENOXYLATE /ATROPINE 2.5 MG TAB PO ONE (16:35)
[2022-07-14] MEDS ORDERED: ONDANSETRON 4 MG ODT PO ONE (16:35)
[2022-07-14] MEDS ORDERED: FAMOTIDINE 20 MG TAB PO ONE (16:35)
--- NOTE | 2022-07-14 17:00 | NUR ---
21 yo/m presents to ed w c/o cough and body aches x5 days, + nausea. pt reports he had episodes of v/d but non recently. gilberto chest pain, sob. pmh: denies allergies: denies
--- NOTE | 2022-07-14 17:08 | NUR ---
covid and flu swabs sent to lab.
[2022-07-14] MEDS ORDERED: ONDA-188 PO (17:52)
[2022-07-14] MEDS ORDERED: PROM118S6 PO (17:52)
[2022-07-14 17:56] VITALS: BP 140/107
--- NOTE | 2022-07-14 17:57 | NUR ---
Patient discharged with v/s stable. Written and verbal after care instructions given and explained. Patient alert, oriented and verbalized understanding of instructions. Ambulatory with steady gait. All questions addressed prior to discharge. ID band removed. Patient advised to follow up with PMD. Rx of PROMETHAZINE, ZOFRAN (SENT) given. Patient educated on indication of medication including possible reaction and side effects. Opportunity to ask questions provided and answered.
[2022-07-15] MEDS ORDERED: IBUP-2213 PO (08:08)
[2022-07-15] MEDS ORDERED: AMOX-1230 PO (08:08)
[2022-07-15] MEDS ORDERED: SIME125T38 PO (08:08)
[2022-07-15] MEDS ORDERED: SUCR1TAB35 PO (08:08)
== END 2022-07-14 17:56 | disposition home or self-care (01) ==
LOC: MED 16:05
DX: J20.9 Acute bronchitis, unspecified (principal); B34.9 Viral infection, unspecified; F10.10 Alcohol abuse, uncomplicated; R11.2 Nausea with vomiting, unspecified; Z20.822 Contact with and (suspected) exposure to COVID-19; R07.89 Other chest pain; F17.210 Nicotine dependence, cigarettes, uncomplicated; Z71.6 Tobacco abuse counseling; Z79.899 Other long term (current) drug therapy; Z79.1 Long term (current) use of non-steroidal anti-inflammatories (NSAID); Z79.891 Long term (current) use of opiate analgesic; Y90.9 Presence of alcohol in blood, level not specified
CPT/HCPCS: 87426; 87804; 99284; Q0162

== ENCOUNTER 2022-07-15 04:20 | Emergency (ER) | payer OTHER ==
[~2022-07-15] VITALS: Ht 180.3 cm; Wt 63.5 kg
[~2022-07-15 04:20] MED LIST changes: +ONDA-188 PO; +PROM118S6 PO
[2022-07-15 04:36] VITALS: BP 141/89
--- NOTE | 2022-07-15 04:43 | NUR ---
TO LOBBY FOLLOWING TRIAGE
[2022-07-15] MEDS ORDERED: KETOROLAC 60 MG/2 ML VIAL IM ONE (06:10)
--- NOTE | 2022-07-15 06:42 | NUR ---
PT AMBULATED TO ER BED 8
[2022-07-15 07:05] LABS: BASOPHILS # (AUTO) 0.1 K/uL (0.00-0.22); BASOPHILS % (AUTO) 0.7 % (0.0-2.0); EOSINOPHILS % (AUTO) 0.1 % (0.0-4.0); HEMATOCRIT 47.1 % (36-52); HEMOGLOBIN 16.1 g/dL (12.0-18.0); LYMPHOCYTES # (AUTO) 0.8 K/uL (2.0-11.5); LYMPHOCYTES % (AUTO) 6.8 % (20.5-51.1); MEAN CORPUSCULAR HEMOGLOBIN 31 pg (27-31); MEAN CORPUSCULAR HGB CONC 34 g/dL (33-37); MEAN CORPUSCULAR VOLUME 90.2 fL (80-94); MONOCYTES # (AUTO) 1.1 K/uL (0.8-1.0); MONOCYTES % (AUTO) 9.4 % (1.7-9.3); NEUTROPHILS # (AUTO) 9.3 K/uL (1.8-7.7); PLATELET COUNT (AUTO) 266 K/uL (140-450); RED BLOOD CELL COUNT(AUTO) 5.22 MIL/uL (4.20-6.10); RED CELL DISTRIBUTION WIDTH 13.7 % (11.6-13.7); WHITE BLOOD COUNT (AUTO) 11.2 K/uL (4.8-10.8)
--- NOTE | 2022-07-15 07:20 | NUR ---
Report recieved from [facility] for transfer of care.
[2022-07-15 07:22] LABS: ALBUMIN 4.4 g/dL (3.4-5.0); ANION GAP 12.9 (8-16); CARBON DIOXIDE 28.9 mmol/L (21-32); CREATININE 0.9 mg/dL (0.6-1.3); POTASSIUM 3.8 mmol/L (3.5-5.1)
[2022-07-15 07:45] LABS: APPEARANCE,URINE CLEAR (CLEAR); BILIRUBIN,URINE NEGATIVE (NEGATIVE); BLOOD, URINE 1+ (NEGATIVE); COLOR,URINE YELLOW (YELLOW); LEUKOCYTE ESTERASE ,URINE NEGATIVE (NEGATIVE); NITRITE, URINE NEGATIVE (NEGATIVE); UGLUCOSE NEGATIVE (NEGATIVE)
[2022-07-15] MEDS ORDERED: SIME125T38 PO (08:08)
[2022-07-15] MEDS ORDERED: IBUP-2213 PO (08:08)
[2022-07-15] MEDS ORDERED: AMOX-1230 PO (08:08)
[2022-07-15] MEDS ORDERED: SUCR1TAB35 PO (08:08)
--- NOTE | 2022-07-15 08:22 | NUR ---
Patient is laying in bed, warm blanket offered. All needs met by staff.
[2022-07-15 09:05] LABS: WBC,URINE 0-5 /HPF (0-5)
--- NOTE | 2022-07-15 09:35 | NUR ---
Dr. Cox re-evaluating patient at bedside.
[2022-07-15 09:37] VITALS: BP 131/83
--- NOTE | 2022-07-15 09:37 | NUR ---
Patient discharged with v/s stable. Written and verbal after care instructions given. Patient alert, oriented and verbalized understanding of instructions. Ambulatory with steady gait. All questions addressed prior to discharge. ID band removed. Patient advised to follow up with PMD. Rx of Amox-Clav, Ibuprofen, Simethicone and Carafate given. Opportunity to ask questions provided and answered. WORK NOTE HANDED TO PATIENT.
--- NOTE | 2022-07-15 09:55 | NUR ---
The patient's care was reviewed and supervised by HEMA JADE RN.
== END 2022-07-15 09:37 | disposition home or self-care (01) ==
LOC: MED 04:20
DX: K52.9 Noninfective gastroenteritis and colitis, unspecified (principal); Z71.6 Tobacco abuse counseling; Z79.1 Long term (current) use of non-steroidal anti-inflammatories (NSAID); Z79.899 Other long term (current) drug therapy; Z79.2 Long term (current) use of antibiotics
CPT/HCPCS: 36415; 74176; 80053; 81001; 85025; 87086; 96372; 99285; J1885

== ENCOUNTER 2022-08-24 08:25 | Emergency (ER) | payer OTHER ==
[~2022-08-24] VITALS: Ht 180.3 cm; Wt 68.0 kg
[~2022-08-24 08:25] MED LIST changes: +AMOX-1230 PO; +SIME125T38 PO; +SUCR1TAB35 PO
[2022-08-24 08:29] VITALS: BP 110/43
--- NOTE | 2022-08-24 08:52 | NUR ---
NAUSEA AND VOMITING ONSET 4 DAYS AGO. ADMITS TO DRINKING EVERY OTHER DAY FOR A MONTH BEFORE ONSET OF SYMPTOMS.
[2022-08-24] MEDS ORDERED: KETOROLAC 60 MG/2 ML VIAL IM ONE (10:05)
[2022-08-24] MEDS ORDERED: ONDA8TAB87 PO (10:53)
[2022-08-24 11:14] VITALS: BP 110/43
== END 2022-08-24 11:14 | disposition home or self-care (01) ==
LOC: MED 08:25
DX: R11.2 Nausea with vomiting, unspecified (principal); R10.13 Epigastric pain; F12.90 Cannabis use, unspecified, uncomplicated; Z79.899 Other long term (current) drug therapy
CPT/HCPCS: 96372; 99283; J1885

== ENCOUNTER 2023-02-22 21:22 | Emergency (ER) | payer OTHER ==
[~2023-02-22] VITALS: Ht 177.8 cm; Wt 81.6 kg
[~2023-02-22 21:22] MED LIST changes: +ONDA8TAB87 PO
[2023-02-22 21:35] VITALS: BP 127/98; PULSE 80; RESP 18; TEMP 98.1; O2SAT 98
[2023-02-23] MEDS ORDERED: IBUPROFEN 600 MG TAB PO ONE (01:05)
[2023-02-23] MEDS ORDERED: IBUP-2218 PO (01:06)
[2023-02-23] MEDS ORDERED: ACET-10509 PO (01:06)
== END 2023-02-23 01:17 | disposition home or self-care (01) ==
LOC: MED 21:22
DX: S83.92XA Sprain of unspecified site of left knee, initial encounter (principal); Z79.899 Other long term (current) drug therapy; Z79.1 Long term (current) use of non-steroidal anti-inflammatories (NSAID); Z79.2 Long term (current) use of antibiotics; X58.XXXA Exposure to other specified factors, initial encounter; Y92.89 Other specified places as the place of occurrence of the external cause; Y93.89 Activity, other specified; Y99.8 Other external cause status
CPT/HCPCS: 73562; 99283

== ENCOUNTER 2023-11-19 08:47 | Emergency (ER) | payer OTHER ==
[~2023-11-19] VITALS: Ht 177.8 cm; Wt 70.3 kg
[~2023-11-19 08:47] MED LIST changes: +ACET500T99 PO; +IBUP-2218 PO; +SUCR-3 PO; -SUCR1TAB35 PO
[2023-11-19 08:57] VITALS: BP 136/94; PULSE 79; RESP 18; TEMP 98.4; O2SAT 99
[2023-11-19] MEDS: IBUPROFEN 600 MG TAB PO ONE (09:46)
[2023-11-19 10:12] VITALS: BP 136/94; PULSE 79; RESP 18; TEMP 98.4; O2SAT 99
== END 2023-11-19 10:12 | disposition home or self-care (01) ==
LOC: MED 08:47
DX: S93.401A Sprain of unspecified ligament of right ankle, initial encounter (principal); M23.92 Unspecified internal derangement of left knee; Z79.899 Other long term (current) drug therapy; V19.9XXA Pedal cyclist (driver) (passenger) injured in unspecified traffic accident, initial encounter; Y93.89 Activity, other specified; Y92.410 Unspecified street and highway as the place of occurrence of the external cause; Y99.8 Other external cause status
CPT/HCPCS: 73562; 73610; 99284

== ENCOUNTER 2023-12-01 21:53 | Emergency (ER) | payer OTHER ==
[~2023-12-01] VITALS: Ht 167.6 cm; Wt 77.1 kg
[2023-12-01 21:58] VITALS: BP 132/99; PULSE 91; RESP 14; TEMP 98.9; O2SAT 99
[2023-12-01 22:58] LABS: APPEARANCE,URINE CLEAR (CLEAR); BILIRUBIN,URINE NEGATIVE (NEGATIVE); BLOOD, URINE NEGATIVE (NEGATIVE); COLOR,URINE YELLOW (YELLOW); LEUKOCYTE ESTERASE ,URINE NEGATIVE (NEGATIVE); NITRITE, URINE NEGATIVE (NEGATIVE); PH,URINE 6.5 (5.0-9.0); PROTEIN,URINE TRACE (NEGATIVE); UGLUCOSE NEGATIVE (NEGATIVE)
[2023-12-01] MEDS: NACL 0.9% 1,000 ML IV ONE (23:03)
[2023-12-01] MEDS: KETOROLAC 30 MG/ML VIAL IVP ONE (23:05)
[2023-12-01] MEDS: ONDANSETRON 4 MG/2 ML VIAL IVP ONE (23:05)
[2023-12-01] MEDS: LOPERAMIDE 2 MG CAP PO ONE (23:05)
[2023-12-01 23:18] VITALS: BP 132/99; PULSE 91; RESP 14; TEMP 98.9; O2SAT 99
[2023-12-01 23:22] LABS: BASOPHILS % (AUTO) 0.4 % (0.0-2.0); HEMATOCRIT 46.9 % (36-52); HEMOGLOBIN 15.9 g/dL (12.0-18.0); LYMPHOCYTES # (AUTO) 0.9 K/uL (2.0-11.5); LYMPHOCYTES % (AUTO) 9.2 % (20.5-51.1); MEAN CORPUSCULAR HEMOGLOBIN 30 pg (27-31); MEAN CORPUSCULAR HGB CONC 34 g/dL (33-37); MEAN CORPUSCULAR VOLUME 88.4 fL (80-94); MONOCYTES # (AUTO) 0.8 K/uL (0.8-1.0); MONOCYTES % (AUTO) 9.1 % (1.7-9.3); NEUTROPHILS # (AUTO) 7.5 K/uL (1.8-7.7); NEUTROPHILS % (AUTO) 81.3 % (42.2-75.2); PLATELET COUNT (AUTO) 284 K/uL (140-450); RED BLOOD CELL COUNT(AUTO) 5.31 MIL/uL (4.20-6.10); RED CELL DISTRIBUTION WIDTH 13.9 % (11.6-13.7); WHITE BLOOD COUNT (AUTO) 9.2 K/uL (4.8-10.8)
[2023-12-01 23:42] LABS: ANION GAP 16.2 (8-16); CALCIUM 9.6 mg/dL (8.5-10.1); CARBON DIOXIDE 26.3 mmol/L (21-32); POTASSIUM 3.5 mmol/L (3.5-5.1)
[2023-12-01] MEDS: ACETAMINOPHEN 325 MG TAB PO ONE (23:45)
[2023-12-01 23:47] LABS: ALBUMIN 4.4 g/dL (3.4-5.0); BILIRUBIN,DIRECT 0.1 mg/dL (0.0-0.3); TOTAL BILIRUBIN 0.6 mg/dL (0.0-1.0); TOTAL PROTEIN, SERUM 8.4 g/dL (6.4-8.2)
[2023-12-01 23:55] LABS: FLU A ANTIGEN negative (NEGATIVE); FLU B ANTIGEN NEGATIVE (NEGATIVE)
[2023-12-02] MEDS ORDERED: IMO2 PO (00:09)
[2023-12-02] MEDS ORDERED: ONDA-188 PO (00:09)
[2023-12-02] MEDS ORDERED: FAMO-90 PO (00:09)
[2023-12-02] MEDS ORDERED: MAG-27 PO (00:09)
== END 2023-12-02 00:17 | disposition home or self-care (01) ==
LOC: MED 21:53
DX: B34.9 Viral infection, unspecified (principal); Z20.822 Contact with and (suspected) exposure to COVID-19; R03.0 Elevated blood-pressure reading, without diagnosis of hypertension; Z79.899 Other long term (current) drug therapy
CPT/HCPCS: 36415; 80048; 80076; 81003; 83690; 85025; 87426; 87804; 96361; 96374; 96375; 99284; J1885; J2405; J7030